=== PATIENT | male | born 1990 | race Caucasian/White ===

== ENCOUNTER 2016-12-28 17:58 | Emergency (ER) | payer OTHER ==
[2016-12-28] MEDS ORDERED: DOXYCYCLINE HYCLATE 100 MG TABLET ONE (18:12)
[2016-12-28] MEDS ORDERED: ALBUTEROL/IPRATROPIUM 2.5/0.5 MG 3 ML/EACH DOSE ONE (18:19)
[2016-12-28] MEDS ORDERED: PREDNISONE 50 MG PO ONE (19:00)
--- NOTE | 2016-12-28 19:00 | RAD ---
Name: JACQUI Trimble SELF Exam: Two-view chest Comparison: None Clinical history: Cough Findings: 2 views of the chest are submitted. The heart mediastinum and hilar structures are within normal limits. There is no failure, infiltrate, pleural effusion or pneumothorax. Regional skeleton is within normal limits. Impression: No acute cardiopulmonary process
== END 2016-12-28 19:21 | disposition home or self-care (01) ==
LOC: ED 17:58
DX: R07.9 Chest pain, unspecified (principal); R05 Cough; R06.2 Wheezing; F17.219 Nicotine dependence, cigarettes, with unspecified nicotine-induced disorders
CPT/HCPCS: 71020; 94640; 99283 ×2; A9270 ×2